=== PATIENT | female | born 1935 | race Caucasian/White ===

== ENCOUNTER 2017-07-26 06:54 | Day surgery (SDC) | payer MEDICARE, BC ==
[2017-07-26] MEDS ORDERED: Lactated Ringers 1,000 ML IV SCH (07:30)
[2017-07-26] MEDS ORDERED: Sodium Chloride 0.9% 5 ML Syringe FLUSH PRN (07:30)
[2017-07-26] MEDS ORDERED: Gatifloxacin 0.5% Ophth Soln 2.5 ML Bot EYERT SCH (07:30)
[2017-07-26] MEDS: Cyclopentolate 1% Opth Soln 2 ML Bottle EYERT SCH ×3 (07:42→08:12)
[2017-07-26] MEDS: Phenylephrine 10% Ophth Soln 5 ML Bot EYERT SCH ×3 (07:47→08:17)
[2017-07-26] MEDS ORDERED: Midazolam 1 MG/ML 2 ML SDV ONE (08:21)
[2017-07-26] MEDS ORDERED: Midazolam 1 MG/ML 2 ML SDV IV ONE (09:00)
[2017-07-26] MEDS ORDERED: Water For Irrigation,Sterile 1,500 ML Container IRR ONE (09:19)
[2017-07-26] MEDS ORDERED: Balanced Salt Solution Plus Ophth Irrig 500 ML Bottle IOCULAR ONE (09:21)
[2017-07-26] MEDS ORDERED: Carbachol 0.01% Intraocular 1.5 ML Vial EYERT ONE (09:21)
[2017-07-26] MEDS ORDERED: Balanced Salt Solution Ophth Irrig 15 ML Bottle EYERT ONE (09:21)
[2017-07-26] MEDS ORDERED: Lidocaine 2% with EPINEPHrine 1:100,000 20 ML MDV INJECT ONE (09:22)
[2017-07-26] MEDS ORDERED: EPINEPHrine 1 MG/ML SDV ONE (09:22)
[2017-07-26] MEDS ORDERED: Dexamethasone/Neomycin/Polymyxin B Ophth Oint 3.5 GM Tube EYERT ONE (09:22)
[2017-07-26] MEDS ORDERED: Hyaluronate Sodium 1% 0.85 ML Syringe IOCULAR ONE (09:23)
[2017-07-26] MEDS ORDERED: Lidocaine 1% 10 ML MDV INJECT ONE (09:23)
[2017-07-26] MEDS ORDERED: Tetracaine HCl/PF 0.5% 4 ML Bottle EYEBOTH ONE (09:24)
[2017-07-26 10:18] VITALS: BP 156/68
--- NOTE | 2017-07-27 10:12 | OR ---
DATE OF SURGERY: 07/26/2017 SURGEON: Chaka Hugo MD PREOPERATIVE DIAGNOSIS: Cataract, right eye. POSTOPERATIVE DIAGNOSIS: Cataract, right eye. OPERATION PERFORMED: Phacoemulsification with posterior chamber lens insertion, right eye. HISTORY: The patient presents at this time with increasing difficulty seeing television. The vision for the right eye is 20/80 -2. 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 FINDINGS: The patient was taken to the operating room where appropriate anesthesia, sedation and monitoring were provided. A retrobulbar block was given on the right side. The eye was massaged and was found to be appropriately soft. The eye and eyelids were then prepped and draped in the usual sterile manner. A lid speculum was placed. A micro sharp blade was used to enter the anterior chamber inside the limbus superior-temporally. Xylocaine was irrigated into the eye at this site. Healon was irrigated into the eye through this site. Then using a 2.85 mm corneal blade an entry was made into the anterior chamber just inside the limbus temporally. Healon was again irrigated into the eye. Then using a cystitome, the anterior capsulorrhexis was created. The lens nucleus was hydrodissected using a 27 gauge cannula and balanced salt solution. The phacoemulsification unit was introduced through the temporal site and the Mango spatula through the superior temporal site. In so doing, the lens nucleus was phacoemulsified. The cortical fragments of the lens were removed using the irrigation aspiration unit. The posterior capsule was polished. Healon was irrigated into the eye. The posterior chamber lens was inserted and rotated into position inside the capsular bag. The Healon was irrigated out of the eye. Miostat was irrigated into the eye and the pupil rounded nicely. Two interrupted 10-0 Nylon sutures were placed through the temporal corneal incision site. Balanced salt solution was irrigated into the eye. The wound was tested and found to be tight. Maxitrol ointment was placed into the patient's right eye. The eyelids were closed and an eye patch and harrison shield were placed. The patient left the operating room in good condition. /[id number]/MODL
== END 2017-07-26 10:24 | disposition home or self-care (01) ==
LOC: KA.SDS 06:54
PROVIDERS: ATTEND Ophthalmology
DX: H25.011 Cortical age-related cataract, right eye (principal); I10 Essential (primary) hypertension; E78.1 Pure hyperglyceridemia; Z79.899 Other long term (current) drug therapy; Z79.82 Long term (current) use of aspirin; Z91.048 Other nonmedicinal substance allergy status
CPT/HCPCS: 00142; A9270-GY; C1780; J0171; J2250; J7120

== ENCOUNTER 2017-08-23 06:51 | Day surgery (SDC) | payer MEDICARE, BC ==
[2017-08-23] MEDS: Cyclopentolate 1% Opth Soln 2 ML Bottle EYELF SCH ×3 (07:27→08:04)
[2017-08-23] MEDS ORDERED: Sodium Chloride 0.9% 5 ML Syringe FLUSH PRN (07:30)
[2017-08-23] MEDS ORDERED: Lactated Ringers 1,000 ML IV SCH (07:30)
[2017-08-23] MEDS: Phenylephrine 10% Ophth Soln 5 ML Bot EYELF SCH ×3 (07:37→08:14)
[2017-08-23] MEDS ORDERED: Tobramycin 0.3% Ophth Drops 5 ML Bottle EYELF SCH (08:00)
[2017-08-23] MEDS ORDERED: Water For Irrigation,Sterile 1,500 ML Container IRR ONE (09:11)
[2017-08-23] MEDS ORDERED: Balanced Salt Solution Ophth Irrig 15 ML Bottle EYELF ONE (09:12)
[2017-08-23] MEDS ORDERED: Balanced Salt Solution Plus Ophth Irrig 500 ML Bottle IOCULAR ONE (09:12)
[2017-08-23] MEDS ORDERED: Dexamethasone/Neomycin/Polymyxin B Ophth Oint 3.5 GM Tube EYELF ONE (09:13)
[2017-08-23] MEDS ORDERED: EPINEPHrine 1 MG/ML SDV ONE (09:13)
[2017-08-23] MEDS ORDERED: Carbachol 0.01% Intraocular 1.5 ML Vial EYELF ONE (09:13)
[2017-08-23] MEDS ORDERED: Hyaluronate Sodium 1% 0.85 ML Syringe IOCULAR ONE (09:14)
[2017-08-23] MEDS ORDERED: Lidocaine 1% 10 ML MDV INJECT ONE (09:14)
[2017-08-23] MEDS ORDERED: Lidocaine 2% with EPINEPHrine 1:100,000 20 ML MDV INJECT ONE (09:14)
[2017-08-23] MEDS ORDERED: Tetracaine HCl/PF 0.5% 4 ML Bottle EYEBOTH ONE (09:15)
[2017-08-23 09:41] VITALS: BP 190/69
--- NOTE | 2017-08-24 09:29 | OR ---
DATE OF SURGERY: 08/23/2017 SURGEON: Chaka Hugo MD PREOPERATIVE DIAGNOSIS: Cataract, left eye. POSTOPERATIVE DIAGNOSIS: Cataract, left eye. OPERATION PERFORMED: Phacoemulsification with posterior chamber lens insertion, left eye. HISTORY: The patient presents at this time with increasing difficulty seeing television, print. Her vision to the left eye is 20/50 -2. The lens of the left eye has a 3+ nuclear sclerosis, a 3+ cortical change, and a 1 to 2+ posterior subcapsular change. The patient has a combined cataract and a cataract of aging. FINDINGS: The patient was taken to the operating room where appropriate anesthesia, sedation and monitoring were provided. A retrobulbar block was given on the left side. The eye was massaged and was found to be appropriately soft. The eye and eyelids were then prepped and draped in the usual sterile manner. A lid speculum was placed. A micro sharp blade was used to enter the anterior chamber inside the limbus inferior-temporally. Xylocaine was irrigated into the eye at this site. Healon was irrigated into the eye through this site. Then using a 2.85 mm corneal blade an entry was made into the anterior chamber just inside the limbus temporally. Healon was again irrigated into the eye. Then using a cystitome, the anterior capsulorrhexis was created. The lens nucleus was hydrodissected using a 27 gauge cannula and balanced salt solution. The phacoemulsification unit was introduced through the temporal site and the Mango spatula through the inferior temporal site. In so doing, the lens nucleus was phacoemulsified. The cortical fragments of the lens were removed using the irrigation aspiration unit. The posterior capsule was polished. Healon was irrigated into the eye. The posterior chamber lens was inserted and rotated into position inside the capsular bag. The Healon was irrigated out of the eye. Miostat was irrigated into the eye and the pupil rounded nicely. A single interrupted 10-0 Nylon suture was placed through the temporal corneal incision site. Balanced salt solution was irrigated into the eye. The wound was tested and found to be tight. Maxitrol ointment was placed into the patient's left eye. The eyelids were closed and an eye patch and harrison shield were placed. The patient left the operating room in good condition. /[id number]/MODL
== END 2017-08-23 09:52 | disposition home or self-care (01) ==
LOC: KA.SDS 06:51
PROVIDERS: ATTEND Ophthalmology
DX: H25.812 Combined forms of age-related cataract, left eye (principal); I10 Essential (primary) hypertension; E78.1 Pure hyperglyceridemia; E78.5 Hyperlipidemia, unspecified; Z79.82 Long term (current) use of aspirin; Z79.899 Other long term (current) drug therapy; Z91.048 Other nonmedicinal substance allergy status
CPT/HCPCS: A9270-GY; J0171; J7120

== ENCOUNTER 2017-09-28 07:04 | Day surgery (SDC) | payer MEDICARE, BC ==
[~2017-09-28 07:04] MED LIST: Bupivacaine 0.5%/EPINEPHrine 1:200,000 30 ML SDV ONE; Dexamethasone 4 MG/ML SDV ONE; EPINEPHrine 1:10,000 1 MG/10 ML Syringe ONE; Lactated Ringers 0 ML ONE; Lactated Ringers 1,000 ML IV SCH; Lactated Ringers 1,000 ML ONE; Midazolam 1 MG/ML 2 ML SDV ONE; Propofol 200 MG/20 ML SDV ONE; Sodium Chloride 0.9% 5 ML Syringe FLUSH PRN; ceFAZolin 1 GM Vial ONE; fentaNYL 250 MCG/5 ML SDV ONE
[2017-09-28] MEDS ORDERED: Succinylcholine 200 MG/10 ML MDV IV ONE (08:15)
[2017-09-28] MEDS ORDERED: Rocuronium 50 MG/5 ML Vial IV ONE (08:15)
[2017-09-28] MEDS ORDERED: Dexamethasone 4 MG/ML SDV IV ONE (08:15)
[2017-09-28] MEDS ORDERED: Metoprolol Tartrate 5 MG/5 ML SDV IV ONE (08:15)
[2017-09-28] MEDS ORDERED: Neostigmine Methylsulfate 1 MG/ML 5 ML Syringe IV ONE (08:15)
[2017-09-28] MEDS ORDERED: Esmolol 100 MG/10 ML SDV IV ONE (08:15)
[2017-09-28] MEDS ORDERED: fentaNYL 250 MCG/5 ML SDV IV ONE (08:15)
[2017-09-28] MEDS ORDERED: Glycopyrrolate 0.2 MG/ML 5 ML MDV IV ONE (08:15)
[2017-09-28] MEDS ORDERED: Labetalol 100 MG/20 ML MDV IV ONE (08:15)
[2017-09-28] MEDS ORDERED: Midazolam 1 MG/ML 2 ML SDV IV ONE (08:15)
[2017-09-28] MEDS ORDERED: ceFAZolin 1 GM Vial IV ONE (08:15)
[2017-09-28] MEDS ORDERED: Propofol 200 MG/20 ML SDV IV ONE (08:15)
[2017-09-28] MEDS ORDERED: Bupivacaine 0.5%/EPINEPHrine 1:200,000 30 ML SDV INFILT ONE (08:34)
[2017-09-28] MEDS ORDERED: ceFAZolin 1 GM Vial ONE (08:34)
[2017-09-28] MEDS ORDERED: Sodium Chloride 0.9% 20 ML SDV ONE (08:34)
[2017-09-28] MEDS ORDERED: Ondansetron 4 MG/2 ML SDV IVPUSH PRN ×2 (08:55→11:52)
[2017-09-28] MEDS ORDERED: Morphine 2 MG/ML Syringe IVPUSH PRN ×2 (08:55)
[2017-09-28] MEDS ORDERED: EPINEPHrine 1:10,000 1 MG/10 ML Syringe ONE (08:55)
[2017-09-28] MEDS ORDERED: fentaNYL 100 MCG/2 ML SDV IVPUSH PRN (08:56)
--- NOTE | 2017-09-28 10:23 | PCM.OPNOTE ---
- General Post-Op/Procedure Note Date of Surgery/Procedure: 09/28/17 Findings: Laparoscopic cholecystectomy Pre Op Diagnosis: Chronic cholecystitis and cholelithiasis Post-Op Diagnosis: As above Anesthesia Technique: General ET Tube Primary Surgeon: Adriana Benavidez Complications: None Condition: Good Free Text/Narrative:: INFORMED CONSENT: This patient is here today because of chronic cholecystitis and cholelithiasis. The operative procedure is laparoscopic cholecystectomy. The operative procedure and risks were discussed including all possible complications including infection, pain, bleeding, bile duct injury, internal organ injury, conversion to open procedure, reoperation, PE, . Anesthetic complications were handled by [employer] OPERATOR. The patient understands well and wishes to proceed. OPERATION PERFORMED: Laparoscopic cholecystectomy. PROCEDURE: The patient was kept in the supine position and a satisfactory general anesthetic was administered via endotracheal tube. The abdomen was thoroughly prepped and draped in the usual fashion. The supraumbilical fold was infiltrated with 1 mL of Marcaine 0.5% and a curvilinear incision was made. The incision was deepened through the subcutaneous tissue until we came down upon the fascial layer. We then held the fascial layer with two Kwame clamps and then introduced a Verre's needle directly into the abdominal cavity. The position of the needle was ascertained by the aspiration of a small quantity of air, free flow of saline, negative aspiration of blood. We then instilled CO2 gas into the abdominal cavity and developed an abdominal pressure of approximately 15 mm/Hg. At this point we removed the Verre's needle and reintroduced it over a sheath. This was followed by a 5/12.5 trocar and a camera. Inspection revealed a chronically inflamed gallbladder with some omental adhesions. The omental pad was quite thick. The rest of the abdominal contents were normal to visualization. Two 5 mm trocars were placed in the right hypochondriac region, one in the right midclavicular and the second on the anterior clavicle line and a third 11.5 trocar was inserted in the subxiphoid position under direct vision. The patient was then kept in the reverse Trendelenburg position with a slight tilt to the left side. The two ratchets were placed one on the fundus and one at the neck of the gallbladder. Dissection was begun at the neck of the gallbladder and the fat in this area was quite immense. We carefully dissected out the cystic artery and cystic duct separately and encircled both structures at approximately 1 to 1-1/2 cm. The critical view [place] was obtained. We ligated each structure separately using endo clips. When ligating the cystic duct we made sure not to encroach upon the common duct in any way. We then used a hook cautery and gently dissected the gallbladder off its bed. The base gallbladder fossa was gently cauterized for additional hemostasis. The gallbladder was retrieved through the umbilical port. The queenie hepatis was thoroughly irrigated with normal saline, most of which was aspirated out. The abdomen was then slowly deflated and prior to removal of the last trocar we completely deflated the abdomen. The trocar sites were washed with Betadine solution and the fascial layer was closed with 0 Polysorb and the skin was closed using 4.0 Polysorb in a subcuticular fashion. We then instilled approximately 20 mL of Marcaine 0.5% with epinephrine between the four sites. Sterile pressure dressings were applied. The patient tolerated the procedure well. There were no operative complications. Sponge, needle, and instrument count were correct. Blood loss was negligible.
[2017-09-28] MEDS ORDERED: Diltiazem 25 MG/5 ML SDV IVPUSH ONE (11:09)
[2017-09-28] MEDS ORDERED: Ketorolac 30 MG/ML SDV IVPUSH PRN ×2 (12:53→13:18)
[2017-09-28] MEDS ORDERED: Pantoprazole 40 MG Vial IVPUSH ONE (12:54)
[2017-09-28 14:57] VITALS: BP 150/82
== END 2017-09-28 14:45 | disposition home or self-care (01) ==
LOC: KA.SDS 07:04
PROVIDERS: ATTEND Family Medicine
DX: K80.10 Calculus of gallbladder with chronic cholecystitis without obstruction (principal); K82.8 Other specified diseases of gallbladder; I10 Essential (primary) hypertension; E78.1 Pure hyperglyceridemia; E66.9 Obesity, unspecified; Z68.31 Body mass index [BMI] 31.0-31.9, adult; Z79.82 Long term (current) use of aspirin; Z79.899 Other long term (current) drug therapy; Z91.048 Other nonmedicinal substance allergy status
CPT/HCPCS: C9113; J0171; J0330; J0690; J1100; J2250; J2405; J2704; J2710; J3010; J3490; J7120

== ENCOUNTER 2022-04-27 13:36 | Emergency (ER) | payer MEDICARE, BC ==
[2022-04-27] MEDS ORDERED: Sodium Chloride 0.9% 10 ML Syringe FLUSH PRN (13:54)
[2022-04-27 14:05] VITALS: BP 185/95; PULSE 87
[2022-04-27] MEDS: Sodium Chloride 0.9% 1,000 ML ONE (14:19)
[2022-04-27] MEDS: Ketorolac 30 MG/ML SDV IVPUSH ONE (14:23)
[2022-04-27] MEDS: Sodium Chloride 0.9% 1,000 ML IV ONE (14:23)
[2022-04-27 14:33] LABS: ANION GAP 17.8 mmol/L (5-15)
== END 2022-04-27 15:30 | disposition swing bed (61) ==
LOC: KA.ED 13:36
DX: M54.50 Low back pain, unspecified (principal); M25.551 Pain in right hip; E78.00 Pure hypercholesterolemia, unspecified; I10 Essential (primary) hypertension; Z91.048 Other nonmedicinal substance allergy status; Z79.82 Long term (current) use of aspirin; Z74.09 Other reduced mobility
CPT/HCPCS: 36415; 72100; 80053; 85025; 96374; 99285-25; J1885; J7030

== ENCOUNTER 2022-05-04 18:09 | Emergency (ER) | payer MEDICARE, BC ==
[2022-05-04] MEDS: HYDROmorphone 1 MG/ML Syringe IVPUSH ONE (18:33)
[2022-05-04] MEDS ORDERED: Sodium Chloride 0.9% 10 ML Syringe FLUSH PRN (18:53)
[2022-05-04 19:48] VITALS: BP 163/85; PULSE 76
== END 2022-05-04 20:15 | disposition home or self-care (01) ==
LOC: KA.ED 18:09
DX: G89.29 Other chronic pain (principal); M53.3 Sacrococcygeal disorders, not elsewhere classified; I10 Essential (primary) hypertension; Z91.041 Radiographic dye allergy status; Z79.899 Other long term (current) drug therapy; Z79.82 Long term (current) use of aspirin; Z90.49 Acquired absence of other specified parts of digestive tract; Z90.710 Acquired absence of both cervix and uterus
CPT/HCPCS: 96374; 99283-25; J1170